=== PATIENT | male | born 1975 | race American Indian/Alaskan Native ===

== ENCOUNTER 2017-11-30 13:31 | Emergency (ER) | payer OTHER ==
--- NOTE | 2017-11-30 16:20 | Emergency Department Report ---
Blank Doc - Documentation Documentation: Pt has cc of R buttock abscess that approaches the rectum and has started to encroach the right scrotum pt states he went to [facility], rcvd Augmentin and Bactrim , and no incision and drainage Pt states abscess area has been present for 1 week, went to clinic rcvd abx. Pt states abx are making pt vomit pt has elevated hr, has elevated temp ( needs rectal temp) fever? pt has large abscess to right medial buttock, which enroaches scrotum-scrotum base has slight induration. Periectal abscess? Scrotal involvement and cellulitis? Abscess is to large and extensive for ED doc to do bed side I and D. Pt need gen surg to incise abscess. Pt needs CT abd pel. Iv fluids, IV abx. MSE completed, nursing notified pt needs main ED
[2017-11-30] MEDS ORDERED: NACL 0.9% 1000 ML 1,000 ML IV ONE (16:22)
[2017-11-30] MEDS: ZOSYN/NS 3.375GM/50ML 3.375 GM/50 ML BAG IV SCH ×2 (16:40→17:46)
[2017-11-30] MEDS ORDERED: ZOFRAN ODT PO ONE (16:51)
[2017-11-30] MEDS ORDERED: NACL ONE (16:54)
--- NOTE | 2017-11-30 16:56 | Emergency Department Report ---
- General Chief complaint: Wound/Laceration Stated complaint: BOIL ON BUTTOCKS Time Seen by Provider: 11/30/17 16:06 Source: patient Mode of arrival: Ambulatory Limitations: No Limitations - History of Present Illness Initial comments: Previously healthy 42-year-old man with approximately 5 day history of swelling and pain in his right buttock and perineal region. He initially went to a local [facility] clinic 3 days ago, was placed on oral amoxicillin and ibuprofen, and although he was able to take the medicine initially, he found that it made him vomit. Despite taking the medicine, infection has progressed, with increased swelling, increased pain, extending proximally scrotum. He had no trauma, no preceding injury, no history of recurrent illnesses. General health is good otherwise. He has not felt feverish. No additional symptoms other than the nausea and vomiting from taking the medications. MD complaint: abscess/boil -: week(s) (1) Tetanus Up to Date: no Location: buttocks (right perineal area), genitals (perineal area) Severity: severe Severity scale (0 -10): 9 Quality: aching Consistency: constant Improves with: none Worsens with: movement Context: none Associated symptoms: vomiting (secondary to antibiotics) Treatments Prior to Arrival: antibiotic - Related Data Allergies Allergy/AdvReac Type Severity Reaction Status Date / Time No Known Allergies Allergy Verified 11/30/17 13:37 Abscess Boil [facility] - HPI Chief Complaint: Wound/Laceration Stated Complaint: BOIL ON BUTTOCKS Time Seen by Provider: 11/30/17 16:06 Duration: 5 Days Location: Perianal Severity: Severe Allergies/Adverse Reactions: Allergies Allergy/AdvReac Type Severity Reaction Status Date / Time No Known Allergies Allergy Verified 11/30/17 13:37 ED Review of Systems ROS: Stated complaint: BOIL ON BUTTOCKS Other details as noted in HPI Constitutional: no symptoms reported Eyes: denies: eye pain, eye discharge, vision change ENT: denies: ear pain, throat pain Respiratory: denies: cough, shortness of breath, wheezing Cardiovascular: denies: chest pain, palpitations Endocrine: no symptoms reported Gastrointestinal: as per HPI, nausea, vomiting (secondary to an about prescribed ) Genitourinary: denies: urgency, dysuria Skin: as per HPI, other (abscess as described) Neurological: denies: headache, weakness, paresthesias Psychiatric: denies: anxiety, depression Hematological/Lymphatic: denies: easy bleeding, easy bruising ED Past Medical Hx - Past Medical History Previous Medical History?: No - Surgical History Past Surgical History?: No - Social History Smoking Status: Current Every Day Smoker Substance Use Type: None, Alcohol Other Social History: Occasional use of marijuana ED Physical Exam - General Limitations: No Limitations General appearance: alert, in distress - Head Head exam: Present: atraumatic, normocephalic - Eye Eye exam: Present: normal appearance - ENT ENT exam: Present: mucous membranes moist - Neck Neck exam: Present: normal inspection - Respiratory Respiratory exam: Present: normal lung sounds bilaterally. Absent: respiratory distress - Cardiovascular Cardiovascular Exam: Present: regular rate, normal rhythm. Absent: systolic murmur, diastolic murmur, rubs, gallop - GI/Abdominal GI/Abdominal exam: Present: soft, normal bowel sounds - Rectal Rectal exam: Present: other (large right perineal abscess, extending from lower right buttock into the perineal area, approximating scrotal area, with some moderate spontaneous purulent drainage, foul-smelling) - exam: Present: other (mild scrotal tenderness, normal swelling, testicles are intact, nontender). Absent: testicular tenderness External exam: Present: normal external exam (normal genitalia) - Extremities Exam Extremities exam: Present: normal inspection - Back Exam Back exam: Present: normal inspection - Neurological Exam Neurological exam: Present: alert, oriented X3 - Psychiatric Psychiatric exam: Present: normal affect, normal mood - Skin Skin exam: Present: warm, dry, other (abscess as noted in hernial area, extending from right buttock anteriorly towards scrotum) ED Course Vital Signs 11/30/17 11/30/17 13:37 18:14 Temperature 99 F 100.2 F H Pulse Rate 102 H 105 H Respiratory 16 17 Rate Blood Pressure 150/92 Blood Pressure 176/97 [Right] O2 Sat by Pulse 97 97 Oximetry - Reevaluation(s) Reevaluation #1: 11/30/17 18:21 Patient's stable repeat examination, general surgeon, Dr. 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 Patient clinically stable, still with some discomfort, medicated for pain. No urologic coverage available at this time, and outside consultation initiated , with placement of called to [facility] transfer center - Consultations Consultation #1: 11/30/17 19:34 Initial consultation with general surgeon, Dr. Alonzo, 1820 hrs., declines except patient for primary urologic condition, and lack of consulting urologist available. Consultation #2: 11/30/17 19:34 Consultation with [facility], and on-call urologist, Dr. Davenport, with discussion of patient's findings conditions, with perineal abscess with phlegmon extending into the inferior scrotal area, with elevated white count, elevated lactic acid, and new diagnosis of hyperglycemia. Dr. Otero feels a general surgical consultation is necessary as well, but she accepts patient as primary physician, with recommendation for ER to ER transfer, to [facility], on main campus, with dual service evaluation in the emergency department by physical therapy resident and urological rest. Patient currently stable, recommendations for transfer discussed, benefits and risks discussed, and patient accepts transfer for further treatment. ED Medical Decision Making - Lab Data Result diagrams: 11/30/17 16:30 11/30/17 16:30 Lactate elevated at 3.0 White count significantly elevated at 31,000, 76 segments neutrophils, 2% bandemia Critical care attestation.: If time is entered above; I have spent that time in minutes in the direct care of this critically ill patient, excluding procedure time. ED Disposition Condition: Stable Referrals: PRIMARY CARE, [Primary Care Provider] - 3-5 Days
[2017-11-30 17:05] LABS: Hematocrit 40.6 % (35.5-45.6); Hemoglobin 13.4 gm/dl (11.8-15.2); Mean Corpuscular HGB Conc 33 % (32-34); Mean Corpuscular Hemoglobin 28 pg (28-32); Mean Corpuscular Volume 85 fl (84-94); Platelet Count 338 K/mm3 (140-440); Red Blood Count 4.78 M/mm3 (3.65-5.03); Red Cell Distribution Width 14.6 % (13.2-15.2)
[2017-11-30 17:15] LABS: Bilirubin,Urine NEG (Negative); Blood,Urine SM (Negative); Color,Urine Yellow (Yellow); Mucus,Urine FEW /HPF
[2017-11-30 17:15] LABS: Alanine Aminotransferase 26 units/L (7-56); Albumin 2.9 g/dL (3.9-5); BUN/Creatinine Ratio 17; Blood Urea Nitrogen 15 mg/dL (9-20); Calcium 9.7 mg/dL (8.4-10.2); Hemolysis Index 42
[2017-11-30] MEDS: MORPHINE IV PRN ×2 (17:21→21:14)
[2017-11-30] MEDS ORDERED: NACL 0.9% 1000 ML IV ONE (17:57)
--- NOTE | 2017-11-30 17:57 | Cat Scan Report ---
FINAL REPORT EXAM: CT ABDOMEN PELVIS W CON HISTORY: r perirectal abscess TECHNIQUE: Spiral CT scanning of the abdomen and pelvis after the uneventful administration of IV contrast. Multiplanar reformations. 100 mL Omnipaque IV. PRIORS: None. FINDINGS: Abdomen: Visualized lung bases grossly unremarkable. No radiopaque gallstones. Liver without significant abnormality. Spleen without significant abnormality. Pancreas without significant abnormality. Kidneys without significant abnormality. Adrenal glands without significant abnormality. Pelvis: Diffuse soft tissue thickening, edema and emphysema noted in the right inferior gluteal region extending to the posterior scrotum. No discrete, ring-enhancing or loculated fluid collection. Prominent or mildly enlarged lymph nodes in the bilateral inguinal regions may be reactive. Bowel grossly unremarkable. Probable appendix partially visualized and grossly unremarkable. No significant free peritoneal fluid or discrete abscess. Abdominal aorta non-aneurysmal. IMPRESSION: 1. Findings which may represent nonspecific postinflammatory or phlegmonous change and cellulitis in the right inferior gluteal, perineal and posterior scrotal soft tissues, including necrotizing fasciitis or Bill gangrene. Clinical correlation and followup suggested.
[2017-11-30 18:01] LABS: Band Neutrophils # (Manual) 0.6 K/mm3; Basophils % (Manual) 0 % (0.0-1.8); Eosinophils % (Manual) 0 % (0.0-4.3); Total Cells Counted 200
[2017-11-30 18:02] LABS: Giant Platelets Rare; Platelet Estimate Consistent w Auto
[2017-11-30] MEDS ORDERED: NACL 0.9% 1000 ML 1,000 ML ONE (21:08)
[2017-11-30 21:35] VITALS: BP 163/79
== END 2017-11-30 22:10 | disposition other institution (70) ==
LOC: ED 13:31
DX: L02.31 Cutaneous abscess of buttock (principal); F17.200 Nicotine dependence, unspecified, uncomplicated
CPT/HCPCS: 36415; 74177; 80053; 81001; 82140; 85007; 85025; 87040; 87116; 96361; 96365; 96375; 99284; J2270; J2543; J7030; Q9967; Q0162